=== PATIENT | female | born 1950 | race African-American/Black ===

== ENCOUNTER 2018-09-10 09:15 | Outpatient (CLI) | payer MEDICARE ==
--- NOTE | 2018-09-10 10:52 | Mammography Report ---
LEFT DIGITAL DIAGNOSTIC MAMMOGRAM: 09/10/18 09:15:00 CLINICAL: For clip placement immediately status post ultrasound biopsy. COMPARISON:Recent [facility] mammogram. FINDINGS: A biopsy clip is now identified within the previously described inner mass. IMPRESSION: Concordant clip placement status post ultrasound biopsy. BI-RADS CATEGORY: 5 - - Highly Suggestive of Malignancy Pathology pending.
--- NOTE | 2018-09-10 12:36 | Ultrasound Report ---
ULTRASOUND GUIDED NEEDLE CORE BIOPSY LEFT BREAST WITH CLIP PLACEMENT: 09/10/18 CLINICAL: A 3 cm left breast mass at 10 o'clock. COMPARISON :Recent [facility] mammogram and ultrasound. 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 Ultrasound demonstrated the previously described mass. I marked the breast with a felt tip marker and a time out was called. The skin was prepped with Betadine and anesthetized with 1% lidocaine. Needle core biopsy was performed through a tiny dermatotomy using ultrasound guidance, 2% lidocaine with epinephrine for deep anesthesia and a 14-gauge Achieve biopsy device. 6 cores were obtained and placed in formalin. A hydro-wale clip was deployed within the mass. The patient tolerated the procedure well and there were no apparent complications. Hemostasis was achieved with minimal pressure and a sterile dressing was applied. A two view mammogram demonstrated concordant placement of the clip. She left the department in good condition and was given instructions for wound care and followup. IMPRESSION: Uncomplicated ultrasound guided needle core biopsy with clip placement left breast.
== END 2018-09-10 09:16 | disposition home or self-care (01) ==
LOC: SPVWC 09:15
PROVIDERS: ATTEND Physician Assistant Medical
DX: C50.212 Malignant neoplasm of upper-inner quadrant of left female breast (principal); I10 Essential (primary) hypertension; E78.00 Pure hypercholesterolemia, unspecified; Z79.899 Other long term (current) drug therapy
CPT/HCPCS: 88305; 88341; 88342; 88368

== ENCOUNTER 2019-09-29 00:01 | Emergency (ER) | payer MEDICARE ==
[2019-09-29] MEDS ORDERED: IPRATROPIUM/ALBUTEROL SULFATE 3 ML AMPUL.NEB IH ONE (00:49)
[2019-09-29] MEDS ORDERED: guaiFENesin/CODEINE 100-10MG ORAL LIQD 5 ML PO ONE (00:49)
--- NOTE | 2019-09-29 01:12 | XRay Report ---
CHEST 1 VIEW INDICATION: cough. COMPARISON: None FINDINGS: Support devices: None. Heart: Within normal limits. Lungs/Pleura: No acute air space or interstitial disease. Additional findings: None. IMPRESSION: 1. No acute findings. Signer Name: Shaggy Fritz MD Signed: 09/29/2019 1:07 AM Workstation Name: [id number]
[2019-09-29 01:33] LABS: Basophils % (Auto) 0.6 % (0.0-1.8); Eosinophils # (Auto) 0.2 K/mm3 (0.0-0.4); Eosinophils % (Auto) 2.2 % (0.0-4.3); Hematocrit 39.3 % (30.3-42.9); Hemoglobin 13.7 gm/dl (10.1-14.3); Lymphocytes # (Auto) 2.3 K/mm3 (1.2-5.4); Mean Corpuscular HGB Conc 35 % (30-34); Mean Corpuscular Volume 95 fl (79-97); Monocytes # (Auto) 0.5 K/mm3 (0.0-0.8); Monocytes % (Auto) 7.2 % (0.0-7.3); Platelet Count 195 K/mm3 (140-440); Red Blood Count 4.12 M/mm3 (3.65-5.03)
[2019-09-29 01:59] LABS: Alanine Aminotransferase 35 units/L (7-56); Albumin 3.9 g/dL (3.9-5); BUN/Creatinine Ratio 16; Blood Urea Nitrogen 8 mg/dL (7-17); Calcium 9.3 mg/dL (8.4-10.2); Hemolysis Index 10
--- NOTE | 2019-09-29 02:44 | Emergency Department Report ---
ED General Adult HPI - General Chief complaint: Weakness Stated complaint: FLU SX/COUGH Time Seen by Provider: 09/29/19 00:27 Source: family, EMS Mode of arrival: Stretcher Limitations: Language Barrier - History of Present Illness Initial comments: The patient presents to the emergency department with a chief complaint of a cough 2 weeks. Patient states the cough is productive with sputum. Patient denies having a fever. Patient denies chest pain, shortness breath, or headache. Patient does not speak Ukrainian and uses a friend to interpret. Pat ient states the cough is worse at night especially laying flat. -: Gradual Severity scale (0 -10): 0 Consistency: constant Improves with: none Worsens with: none Associated Symptoms: denies other symptoms Treatments Prior to Arrival: none - Related Data Home Medications Medication Instructions Recorded Confirmed Last Taken Adult Low Dose Aspirin EC 81 mg PO DAILY 05/30/16 05/30/16 05/28/16 Fish Oil 1 tab PO DAILY 05/30/16 05/30/16 05/28/16 Nadolol 1 tab PO DAILY 05/30/16 05/30/16 05/28/16 Previous Rx's Medication Instructions Recorded Last Taken Type Albuterol INH(or & Nicu Only) 2 puff IH Q4HR PRN #1 inhalation 09/29/19 Unknown Rx [ProAir HFA Inhaler] Azithromycin [Zithromax Z-TRAY] 250 mg PO DAILY #6 tablet 09/29/19 Unknown Rx Benzonatate [Tessalon Perles] 100 mg PO Q8HR PRN #20 capsule 09/29/19 Unknown Rx guaiFENesin/CODEINE [Robitussin AC] 5 ml PO Q12HR PRN #180 oral.liqd 09/29/19 Unknown Rx predniSONE [Deltasone] 20 mg PO DAILY #15 tablet 09/29/19 Unknown Rx Allergies Allergy/AdvReac Type Severity Reaction Status Date / Time No Known Allergies Allergy Verified 05/30/16 06:51 ED Review of Systems ROS: Stated complaint: FLU SX/COUGH Other details as noted in HPI Comment: All other systems reviewed and negative Constitutional: denies: chills, fever Eyes: denies: eye pain, eye discharge, vision change ENT: denies: ear pain, throat pain Respiratory: cough, shortness of breath. denies: wheezing Cardiovascular: denies: chest pain, palpitations Endocrine: no symptoms reported Gastrointestinal: denies: abdominal pain, nausea, diarrhea Genitourinary: denies: urgency, dysuria, discharge Musculoskeletal: denies: back pain, joint swelling, arthralgia Skin: denies: rash, lesions Neurological: denies: headache, weakness, paresthesias Psychiatric: denies: anxiety, depression Hematological/Lymphatic: denies: easy bleeding, easy bruising ED Past Medical Hx - Past Medical History Hx Hypertension: Yes Additional medical history: unknown cardiac history, taking cholestrol med - Surgical History Past Surgical History?: No - Social History Smoking Status: Never Smoker Substance Use Type: None - Medications Home Medications: Home Medications Medication Instructions Recorded Confirmed Last Taken Type Adult Low Dose Aspirin EC 81 mg PO DAILY 05/30/16 05/30/16 05/28/16 History Fish Oil 1 tab PO DAILY 05/30/16 05/30/16 05/28/16 History Nadolol 1 tab PO DAILY 05/30/16 05/30/16 05/28/16 History Albuterol INH(or & Nicu Only) 2 puff IH Q4HR PRN #1 inhalation 09/29/19 Unknown Rx [ProAir HFA Inhaler] Azithromycin [Zithromax Z-TRAY] 250 mg PO DAILY #6 tablet 09/29/19 Unknown Rx Benzonatate [Tessalon Perles] 100 mg PO Q8HR PRN #20 capsule 09/29/19 Unknown Rx guaiFENesin/CODEINE [Robitussin AC] 5 ml PO Q12HR PRN #180 oral.liqd 09/29/19 Unknown Rx predniSONE [Deltasone] 20 mg PO DAILY #15 tablet 09/29/19 Unknown Rx ED Physical Exam - General Limitations: Language Barrier General appearance: alert, in no apparent distress - Head Head exam: Present: atraumatic, normocephalic - Eye Eye exam: Present: normal appearance, PERRL, EOMI - ENT ENT exam: Present: mucous membranes moist - Neck Neck exam: Present: normal inspection - Respiratory Respiratory exam: Present: wheezes. Absent: respiratory distress - Cardiovascular Cardiovascular Exam: Present: regular rate, normal rhythm. Absent: systolic murmur, diastolic murmur, rubs, gallop - GI/Abdominal GI/Abdominal exam: Present: soft, normal bowel sounds. Absent: distended, tenderness - Extremities Exam Extremities exam: Present: normal inspection - Back Exam Back exam: Present: normal inspection - Neurological Exam Neurological exam: Present: alert, oriented X3, CN II-XII intact. Absent: motor sensory deficit - Psychiatric Psychiatric exam: Present: normal affect, normal mood - Skin Skin exam: Present: warm, dry, intact, normal color. Absent: rash ED Course Vital Signs 09/29/19 09/29/19 00:20 00:28 Temperature 98.5 F Pulse Rate 62 62 Respiratory 16 Rate Blood Pressure 150/73 O2 Sat by Pulse 95 Oximetry ED Medical Decision Making - Lab Data Result diagrams: 09/29/19 01:09/29/19 01: Lab Results 09/29/19 09/29/19 Range/Units 01:01 01:01 WBC 7.1 (4.5-11.0) K/mm3 RBC 4.12 (3.65-5.03) M/mm3 Hgb 13.7 (10.1-14.3) gm/dl Hct 39.3 (30.3-42.9) % MCV 95 (79-97) fl MCH 33 H (28-32) pg MCHC 35 H (30-34) % RDW 13.0 L (13.2-15.2) % Plt Count 195 (140-440) K/mm3 Lymph % (Auto) 32.0 (13.4-35.0) % Phelps % (Auto) 7.2 (0.0-7.3) % Eos % (Auto) 2.2 (0.0-4.3) % Baso % (Auto) 0.6 (0.0-1.8) % Lymph # 2.3 (1.2-5.4) K/mm3 Phelps # 0.5 (0.0-0.8) K/mm3 Eos # 0.2 (0.0-0.4) K/mm3 Baso # 0.0 (0.0-0.1) K/mm3 Seg Neutrophils % 58.0 (40.0-70.0) % Seg Neutrophils # 4.1 (1.8-7.7) K/mm3 Sodium 141 (137-145) mmol/L Potassium 3.8 (3.6-5.0) mmol/L Chloride 102.0 (98-107) mmol/L Carbon Dioxide 26 (22-30) mmol/L Anion Gap 17 mmol/L BUN 8 (7-17) mg/dL Creatinine 0.5 L (0.7-1.2) mg/dL Estimated GFR > 60 ml/min BUN/Creatinine Ratio 16 % Glucose 135 H (65-100) mg/dL Calcium 9.3 (8.4-10.2) mg/dL Total Bilirubin 0.20 (0.1-1.2) mg/dL AST 32 (5-40) units/L ALT 35 (7-56) units/L Alkaline Phosphatase 87 (35-129) units/L Total Protein 6.7 (6.3-8.2) g/dL Albumin 3.9 (3.9-5) g/dL Albumin/Globulin Ratio 1.4 % - Radiology Data Radiology results: report reviewed - Medical Decision Making Discussed results with patient Symptoms improved with albuterol nebulizer treatment Critical care attestation.: If time is entered above; I have spent that time in minutes in the direct care of this critically ill patient, excluding procedure time. ED Disposition Clinical Impression: Bronchitis Disposition: DC- TO HOME OR SELFCARE Is pt being admited?: No Does the pt Need Aspirin: No Condition: Stable Instructions: Acute Bronchitis (ED) Additional Instructions: return if worse Referrals: [facility] [Provider Group] - 3-5 Days [facility] [Provider Group] - 3-5 Days JOHN LOPES MD [Staff Physician] - 3-5 Days Time of Disposition: 02:50
[2019-09-29 03:25] VITALS: BP 116/62
== END 2019-09-29 03:28 | disposition home or self-care (01) ==
LOC: ED 00:01
DX: J40 Bronchitis, not specified as acute or chronic (principal); I10 Essential (primary) hypertension; Z79.899 Other long term (current) drug therapy
CPT/HCPCS: 36415; 71045; 80053; 85025; 94640